=== PATIENT | female | born 1990 | race Caucasian/White ===

== ENCOUNTER 2017-10-16 05:19 | Emergency (ER) | payer OTHER ==
[~2017-10-16] VITALS: Ht 162.6 cm; Wt 56.7 kg
[~2017-10-16 05:19] MED LIST: ADDERALL 5 MG TA5 MG PO; AMOXICILLIN250 MG PO; AMOXICILLIN500 MG PO; ANASPAZ0.125 MG PO; ATIVAN0.5 MG PO; BUPROPION XL150 MG PO; COENZYME Q1010 MG PO; COUMADIN5 MG PO; CYCLOBENZAPRINE5 MG PO; DILAUDID4 MG PO; FLUDROCORTISON0.1 MG PO; HYDROCODON-ACE1 EA10 PO; IBUPROFEN600 MG PO; IRON325 M1 PO; LEXAPRO20 MG PO; LORAZEPAM0.5 MG PO; LORAZEPAM1 MG PO; LOVENOX40 MG; MAGNESIUM500 MG PO; METRONIDAZOLE500 MG PO; MILK OF MA400 MG/5 M PO; NORCO 5-325 TA1 EACH PO; PHENERGAN25 MG RC; PINDOLOL10 MG PO; PINDOLOL5 MG PO; POTASSIUM CHLO10 MEQ PO; PRENATAL CAPSU1 EACH PO; PRENATAL MULTI1 EACH PO; PROPRANOLOL HCL20 MG PO; PROTONIX40 MG PO; SODIUM CHLORIDE1 GM PO; STOOL SOFTENER240 MG PO; TUMS200 MG PO; VICODIN 5-5001 EACH PO; VITAMIN D10000 UNIT PO; WELLBUTRIN XL150 MG PO; ZOFRAN ODT8 MG PO
[2017-10-16] MEDS ORDERED: AMPHETAMINE SAL10 MG PO (05:31)
[2017-10-16] MEDS ORDERED: ZOFRAN ODT4 MG PO (06:52)
== END 2017-10-16 07:48 | disposition home or self-care (01) ==
LOC: ED 05:19
DX: K52.9 Noninfective gastroenteritis and colitis, unspecified (principal); Q79.6 Ehlers-Danlos syndromes; Z95.828 Presence of other vascular implants and grafts; Z88.8 Allergy status to other drugs, medicaments and biological substances; Z88.1 Allergy status to other antibiotic agents; Z88.0 Allergy status to penicillin; Z91.048 Other nonmedicinal substance allergy status
CPT/HCPCS: 80053; 81001; 83690; 84703; 85025; 96361; 96374; 96375; 96376; 99283; J1170; J2405; J2550; J7030

== ENCOUNTER 2018-03-06 08:55 | Day surgery (SDC) | payer OTHER ==
[~2018-03-06] VITALS: Ht 162.6 cm; Wt 54.4 kg
[~2018-03-06 08:55] MED LIST changes: +AMPHETAMINE SAL10 MG PO; +CYCLOBENZAPRINE10 MG PO; +K-TAB ER20 MEQ PO; +ZOFRAN ODT4 MG PO
[2018-03-06] MEDS ORDERED: FIORINAL-COD 31 EACH PO (09:09)
--- NOTE | 2018-03-06 12:07 | NUR ---
03/06/18 Chaz7 Pamela Garcia 1147 PT ARRIVED TO PCAU ON 6L VIA MASK. PT MAINTAINING OWN AIRWAY AND REACTIVE TO STIMULI. 1152 PT WOKE UP TO STIMULI WITH DIGITAL MARKETING STRATEGIST AT BEDSIDE, PT FOLLOWING COMMANDS ABOUT SUCTION, SMALL AMOUNT OF RED SPUTUM SUCTIONED. O2 MASK REMOVED, O2 SAT 100%. PT REPORTS HER "HEAD HURTING SOME" BUT TOLERABLE.
--- NOTE | 2018-03-06 12:47 | NUR ---
1225: PATIENT BACK IN DAY SURGERY ROOM FROM PACU. C/O PAIN 5/10. NASAL PACKING IN PLACE. SMALL AMOUNT OF RED DRAINAGE FROM NOSE. VS CHECKED. IV SITE WNL. SCDs ON. AT BEDSIDE. CALL LIGHT WITHIN REACH. ICE CREAM ORDERED FOR PATIENT. GIVEN ICE WATER. 1238: CALL PLACED TO DR. AVALOS FOR PAIN MEDS. ORDERS RECEIVED.
--- NOTE | 2018-03-06 13:05 | NUR ---
PT UP TO BR W/RN AND STANDBY. PT AMBULATES WELL AND REPORTS "A LITTLE DIZZINESS". PT REPORTS SUCCESSFUL VOID. ICE CREAM ARRIVES AND PT IS SITTING UP IN BED EATING. PT PLACES GLASSES AND HER IS AT HER BS.
--- NOTE | 2018-03-06 13:29 | NUR ---
PT RINGS CALL LIGHT TO SAY SHE IS "NOT FEELING ANY BETTER". PT ENCOURAGED TO ALLOW TIME FOR PO PRN TIME TO WORK AND SHE AGREES. PT EXPRESSES CONCERN WITH HAVING NO PAIN MEDICINE AT HOME. BLUE SHEET PRESCRIPTION SENT WITH SPOUSE OVER TO DR. AVALOS'S OFFICE FOR HIM TO REQUEST PAIN MEDICINE FOR AT HOME. WILL CONTINUE TO MONITOR PATIENT'S PAIN.
[2018-03-06] MEDS ORDERED: ULTRAM50 MG PO (14:22)
[2018-03-06] MEDS ORDERED: DILAUDID2 MG PO (14:22)
[2018-03-06] MEDS ORDERED: KEFLEX500 MG PO (14:23)
--- NOTE | 2018-03-06 14:58 | NUR ---
1400: PATIENT GIVEN SECOND DOSE OF DILAUDID FOR PAIN. PRESCRIPTION GIVEN TO TO GO DROP OFF. 1440: PATIENT STATES PAIN IMPROVED. BUT PATIENT C/O NAUSEA INTERMITTENTLY. PATIENT STATES SHE WANTS TO GO HOME SO SHE CAN GET IN HER OWN BED. DISCHARGE INSTRUCTIONS GIVEN TO PATIENT AND . IV DC'D WNL. TIP INTACT. DRESSING APPLIED. PATIENT DRESSED INDEPENDENTLY. PATIENT DISCHARGED TO HOME WITH VIA WHEELCHAIR.
--- NOTE | 2018-05-01 14:26 | OR ---
[facility] [address] [place], [place] [address] Signed DATE OF OPERATION: 03/06/2018 SURGEON: Sean Blackburn MD PREOPERATIVE DIAGNOSES: Nasal obstruction due to septal deformity and inferior turbinate hypertrophy. 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 PROCEDURE: Septoplasty, cautery of inferior turbinates. ANESTHESIA: General LMA; SUBSTATION OPERATOR CHIEF, Gene. PREOPERATIVE HISTORY: Stephanie is a 28-year-old lady with nasal obstruction, congestion due to septal deformity, inferior turbinate hypertrophy, unresponsive to appropriate medications. She was taken to the operating for the above-mentioned procedures. OPERATIVE PROCEDURE AND FINDINGS: After informed consent, the patient was taken to the operating room and placed in supine position where general LMA anesthesia was induced. The patient and procedure were verified. The patient received preoperative intranasal oxymetazoline and intravenous Ancef. Headlight speculum exam of the nasal cavity showed nicely decongested inferior turbinates. The septum was deviated to the right with a large shelf and a spur. A 1% lidocaine was injected in the septal mucosa and all deviated septal bone and cartilage were removed with the Crow. The septum was medialized and airway improved in this manner. The inferior turbinates were then cauterized starting on the left side, long handle needle point cautery. Multiple passes starting anteriorly extending all the way back posteriorly on the medial and inferior surface of the inferior turbinates. Excellent decongestion was obtained. The same procedure on the right inferior turbinate. Bleeding was minimal, stopped afterwards. Merocel pack one piece each side trimmed, coated with Neosporin, tied anteriorly over a pad, was placed one piece each nostril. Pharynx was suctioned clear blood secretions. The patient was then awakened, extubated, transported to recovery room in good condition. No complications. Blood loss minimal. No Electronically Signed By: SEAN BLACKBURN MD 05/01/18 1426 PATIENT NAME: STEPHANIE IRVING OPERATIVE REPORT DATE OF : 86 REPORT #: [id number] PHYSICIAN: SEAN BLACKBURN MD PCP: SVITLANA AN PAC REPORT IS CONFIDENTIAL AND NOT TO BE RELEASED WITHOUT AUTHORIZATION [facility] [address] [place] [id number] Signed specimens. No drains. Packing one piece of Merocel each nostril. Sean Blackburn MD GC/MODL /[id number] Copies: ~ Electronically Signed By: SEAN BLACKBURN MD 05/01/18 1426 PATIENT NAME: MALETICH,STEPHANIE PENNYANN OPERATIVE REPORT DATE OF : 86 REPORT #: [id number] PHYSICIAN: SEAN BLACKBURN MD PCP: SVITLANA AN PAC REPORT IS CONFIDENTIAL AND NOT TO BE RELEASED WITHOUT AUTHORIZATION
== END 2018-03-06 14:40 | disposition home or self-care (01) ==
LOC: DS 08:55
PROVIDERS: Otolaryngology
PROC: 09SM0ZZ Reposition Nasal Septum, Open Approach (ICD-10-PCS; principal; 2018-03-06 11:45)
PROC: 095L0ZZ Destruction of Nasal Turbinate, Open Approach (ICD-10-PCS; 2018-03-06 11:45)
DX: J34.2 Deviated nasal septum (principal); J34.3 Hypertrophy of nasal turbinates; J34.89 Other specified disorders of nose and nasal sinuses; M54.2 Cervicalgia; M54.9 Dorsalgia, unspecified; K21.9 Gastro-esophageal reflux disease without esophagitis; Z88.0 Allergy status to penicillin; Z88.1 Allergy status to other antibiotic agents; Z88.8 Allergy status to other drugs, medicaments and biological substances
CPT/HCPCS: 00160; J0690; J2405; J2704; J2765; J3010; J7120

== ENCOUNTER 2019-03-19 17:42 | Emergency (ER) | payer OTHER ==
[~2019-03-19] VITALS: Ht 162.6 cm; Wt 54.4 kg
[~2019-03-19 17:42] MED LIST changes: +AMITRIPTYLINE H25 MG PO; +DILAUDID2 MG PO; +FIORINAL-COD 31 EACH PO; +KEFLEX500 MG PO; +ULTRAM50 MG PO
--- OUTSIDE RECORDS SUMMARY | 2019-03-19 17:44 | XMS ---
PreManage Notification: AQUILES IRVING Security Services Executive Events No recent Security Events currently on file CRITERIA MET - Group Notification - [facility] CARE PROVIDERS MALIA BUTLER [facility] Current PHONE: Unknown SVITLANA NICHOLS Primary Care Current PHONE: [phone] Asad Marquis MD PHONE: Unknown Fazal Marley Current Orthopedic Surgery \T\ Fracture Clinic PHONE: Unknown Guidelines Source: [facility] Guidelines Date: 12/12/2016 Pain Management: PT DISCHARGED 12/11/16 S/Salena GAVIN FROM [facility]. PT DISCHARGED ON DILAUDID 4MG TABS #60 WITH NO REFILLS. E.D. VISIT COUNT (12 MO.) 1 [facility] [address] [facility] TOTAL 3 NOTE: Visits indicate total known visits. ED/UCC VISIT TRACKING (12 MO.) 03/19/2019 17:42 [facility] [place] TYPE: Emergency COMPLAINT: - HEAD PAIN/NON INJURY 11/02/2018 19:55 Anthony [place] TYPE: Emergency COMPLAINT: - NAUSEA VOMITING DIAGNOSES: - Palpitations - Personal history of other venous thrombosis and embolism - Essential (primary) hypertension - Dehydration - Other specified cardiac arrhythmias - Nausea with vomiting, unspecified 11/02/2018 10:39 [facility] [place] TYPE: Emergency DIAGNOSES: - chest pain - Orthostatic hypotension - Tachycardia, unspecified INPATIENT VISIT TRACKING (12 MO.) No inpatient visits to display in this time frame [email or web address]
[2019-03-19] MEDS ORDERED: POTASSIUM CHLO10 MEQ PO (18:51)
[2019-03-19] MEDS ORDERED: VENLAFAXINE H37.5 M1 PO (18:52)
== END 2019-03-19 20:12 | disposition home or self-care (01) ==
LOC: ED 17:42
DX: G43.919 Migraine, unspecified, intractable, without status migrainosus (principal); F41.9 Anxiety disorder, unspecified; Z88.1 Allergy status to other antibiotic agents; Z88.0 Allergy status to penicillin; Z88.8 Allergy status to other drugs, medicaments and biological substances; Z91.09 Other allergy status, other than to drugs and biological substances; Z79.899 Other long term (current) drug therapy
CPT/HCPCS: 96361; 96374; 96375; 99283-25; J1200; J1885; J2765; J7030

== ENCOUNTER 2019-04-29 01:51 | Emergency (ER) | payer OTHER ==
[~2019-04-29] VITALS: Ht 162.6 cm; Wt 59.4 kg
[~2019-04-29 01:51] MED LIST changes: +VENLAFAXINE H37.5 M1 PO
--- OUTSIDE RECORDS SUMMARY | 2019-04-29 01:54 | XMS ---
PreManage Notification: AQUILES IRVING Security Pain Management Nurse Events No recent Security Events currently on file CRITERIA MET - Group Notification - [facility] CARE PROVIDERS SVITLANA AN Physician Customer Relations Representative 03/20/2019-Current PHONE: Unknown MALIA BUTLER Family Medicine [facility] PHONE: [phone] SVITLANA NICHOLS Primary Care Current PHONE: [phone] Asad Marquis Treatment Current PHONE: Unknown [facility] Current Orthopedic Surgery \T\ Fracture Clinic PHONE: Unknown Guidelines Source: [facility] Guidelines Date: 12/12/2016 Pain Management: PT DISCHARGED 12/11/16 S/Salena GAVIN FROM [facility]. PT DISCHARGED ON DILAUDID 4MG TABS #60 WITH NO REFILLS. E.D. VISIT COUNT (12 MO.) 1 [facility] 1 [facility] ED 2 [facility]. TOTAL 4 NOTE: Visits indicate total known visits. ED/UCC VISIT TRACKING (12 MO.) 04/29/2019 01:52 [facility] [place] TYPE: Emergency COMPLAINT: - ABDOMINAL PAIN 03/19/2019 17:42 [facility] [place] TYPE: Emergency COMPLAINT: - HEAD PAIN/NON INJURY DIAGNOSES: - Migraine, unspecified, intractable, without status migrainosus - Allergy status to other drugs, medicaments and biological substances status - Anxiety disorder, unspecified - Other allergy status, other than to drugs and biological substances - Allergy status to penicillin - Other cottage cheese maker (current) drug therapy - Headache - Allergy status to other antibiotic agents status 11/02/2018 19:55 [facility] [place] TYPE: Emergency COMPLAINT: - NAUSEA VOMITING DIAGNOSES: - Palpitations - Personal history of other venous thrombosis and embolism - Essential (primary) hypertension - Dehydration - Other specified cardiac arrhythmias - Nausea with vomiting, unspecified 11/02/2018 10:39 [facility] TYPE: Emergency DIAGNOSES: - chest pain - Orthostatic hypotension - Tachycardia, unspecified INPATIENT VISIT TRACKING (12 MO.) No inpatient visits to display in this time frame [email or web address]
[2019-04-29] MEDS ORDERED: K-TAB ER20 MEQ PO (02:07)
[2019-04-29] MEDS ORDERED: RIZATRIPTAN5 MG PO (02:09)
[2019-04-29] MEDS ORDERED: EFFEXOR XR150 MG PO (02:09)
[2019-04-29] MEDS ORDERED: AMERGE2.5 MG PO (02:10)
[2019-04-29] MEDS ORDERED: CELEBREX50 MG PO (02:10)
[2019-04-29] MEDS ORDERED: HYDROXYZINE HCL50 MG PO (02:11)
[2019-04-29] MEDS ORDERED: MIDODRINE HCL5 MG PO (02:11)
[2019-04-29] MEDS ORDERED: ZOFRAN4 MG PO (05:30)
[2019-04-29] MEDS ORDERED: TRAMADOL HCL50 MG PO (05:30)
== END 2019-04-29 05:53 | disposition home or self-care (01) ==
LOC: ED 01:51
DX: K52.9 Noninfective gastroenteritis and colitis, unspecified (principal); Z87.891 Personal history of nicotine dependence; Z90.49 Acquired absence of other specified parts of digestive tract; Z88.1 Allergy status to other antibiotic agents; Z88.6 Allergy status to analgesic agent; Z88.8 Allergy status to other drugs, medicaments and biological substances; Z91.048 Other nonmedicinal substance allergy status; Z79.899 Other long term (current) drug therapy
CPT/HCPCS: 74177; 80053; 81001; 83690; 83735; 84703; 85025; 99283-25; J1170; J2405; J7030; Q9967

== ENCOUNTER 2019-04-30 07:26 | Day surgery (SDC) | payer OTHER ==
[~2019-04-30] VITALS: Ht 162.6 cm; Wt 59.0 kg
[~2019-04-30 07:26] MED LIST changes: +AMERGE2.5 MG PO; +CELEBREX50 MG PO; +EFFEXOR XR150 MG PO; +HYDROXYZINE HCL50 MG PO; +MIDODRINE HCL5 MG PO; +RIZATRIPTAN5 MG PO; +TRAMADOL HCL50 MG PO; +ZOFRAN4 MG PO
--- NOTE | 2019-04-30 08:59 | NUR ---
04/30/19 0859 Sarah Hernandez 7315-PATIENT ARRIVED TO PACU ON 2L NC RR EVEN. PATIENT AROUSES TO VERBAL STIMULI REPORTS "SLEEPY" LAYING LEFT LATERAL. ENCOURAGED TO PASS GAS. IVF INFUSING. C02 36. PATIENT DOZES BACK TO SLEEP.
--- NOTE | 2019-04-30 16:54 | OR ---
[facility] [address], [place] [address] Signed DATE OF OPERATION: 04/30/2019 SURGEON: Alonzo Wall MD PREOPERATIVE DIAGNOSES: 1. Epigastric and generalized abdominal pain. 2. Diarrhea. 3. Bloating and nausea. 4. Pancolitis. POSTOPERATIVE DIAGNOSES: 1. Mild diffuse gastritis. 2. Small hiatal hernia. 3. Pancolitis. PROCEDURES: 1. Esophagogastroduodenoscopy with CLOtest and biopsies of the duodenum and antrum. 2. Colonoscopy with cold biopsies throughout the entire colon and rectum. ESTIMATED BLOOD LOSS: Minimal. INDICATIONS: Stephanie is a 29-year-old female who had been in the emergency room with significant epigastric and generalized abdominal pain. She has nausea, bloating, and diarrhea. She thinks she has been dealing with this for at least 10 years into her teenage years. It happens 3 or 4 times in a year. It is associated with 10 to 12 episodes of diarrhea a day. It often bothers her at night. She did not mention if there is any blood in the stool. In the emergency room, her white count was normal and beta-hCG was negative. She has had her gallbladder out previously. Her sedimentation rate and CRP level are pending. A CT scan of abdomen and pelvis showed pancolitis. I saw her the very next morning in my office the following day. Now, we have her here for her endoscopy. In the office, I gave her pamphlets on both upper and lower endoscopy. We looked at those together along with the risks including, but not limited to gas, bloating, crampy abdominal pain, bleeding, perforation requiring surgery, and missed diagnosis. She also understands the need for IV conscious sedation. She had expressed her understanding and wished to proceed. DESCRIPTION OF PROCEDURE: Stephanie was taken into our endoscopy suite and placed in the supine semi-recumbent Electronically Signed By: ALONZO WALL MD 04/30/19 1654 PATIENT NAME: STEPHANIE IRVING OPERATIVE REPORT DATE OF : 86 REPORT #: [id number] PHYSICIAN: ALONZO WALL MD PCP: SVITLANA AN PAC REPORT IS CONFIDENTIAL AND NOT TO BE RELEASED WITHOUT AUTHORIZATION [facility] [address], [place] [address] Signed position. She was given a total of 10 mg of Versed and 200 mcg of fentanyl to cover both upper and lower endoscopy. Her posterior oropharynx was anesthetized with Hurricaine spray. A bite block was utilized for the case. The adult gastroscope was introduced and advanced out into the third portion of the duodenum under direct visualization of the camera without difficulty. We took two biopsies of the duodenum for pathologic review due to the history of diarrhea. Otherwise, the duodenum and pyloric channel were unremarkable. Overall, the stomach showed very mild erythematous changes. We went ahead and took a biopsy of the antrum for CLOtest as well as pathologic review. Upon retroflexion of the scope, she has just a small hiatal hernia. There were no gastric or esophageal varices. No ulcerations. The scope was withdrawn up to the area of the GE junction, which was compliant without stricture. She does have mild disruption to the Z-line. No Kaur's mucosa. No distal esophagitis. The middle and upper esophagus were unremarkable. After this, the gas had been suctioned out and the gastroscope removed. Stephanie tolerated the upper endoscopy quite well. Stephanie was then rotated into the left lateral decubitus position. She was maintained on IV sedation with the Versed and fentanyl. A digital rectal exam was performed and this was unremarkable. The adult colonoscope was introduced and advanced all the way around into the cecum under direct visualization of the camera. She did have inflammatory changes from the anus all the way back to the cecum. Her inflammatory changes were contiguous. She had a little bit of narrowing in the sigmoid colon from the edema. Her prep was good. We made several attempts to turn and go into the ileum without success. It was edematous and would not allow the scope to enter. We went and took a biopsy at the base of the appendix as well as the cecum. The scope was then slowly withdrawn. We took multiple random cold biopsies in the right colon, hepatic flexure, transverse colon, left colon, sigmoid colon, and rectum. The scope had been retroflexed in the rectum and, again, the inflammatory changes go down to the top of the anus. After this, the gas was suctioned out and colonoscope removed. Stephanie tolerated the procedure quite well. RECOMMENDATIONS: We will have Stephanie back in the office in a week or so for followup. We will withhold any prednisone or anti-inflammatory drugs at this time. Alonzo Wall MD ALB/MODL /[id number] Electronically Signed By: ALONZO WALL MD 04/30/19 1654 PATIENT NAME: STEPHANIE IRVING [facility] OPERATIVE REPORT DATE OF : 86 REPORT #: [id number] PHYSICIAN: ALONZO WALL MD PCP: SVITLANA AN PAC REPORT IS CONFIDENTIAL AND NOT TO BE RELEASED WITHOUT AUTHORIZATION [facility] [address] [place] [address] Signed cc: Dnany Alonzo Wall MD Copies: ALONZO WALL MD ~ Electronically Signed By: ALONZO WALL MD 04/30/19 1654 PATIENT NAME: STEPHANIE IRVING OPERATIVE REPORT DATE OF : 86 REPORT #: [id number] PHYSICIAN: ALONZO WALL MD PCP: SVITLANA AN PAC REPORT IS CONFIDENTIAL AND NOT TO BE RELEASED WITHOUT AUTHORIZATION
== END 2019-04-30 10:10 | disposition home or self-care (01) ==
LOC: DS 07:26 → OPS 07:26 → DS 08:15 → OPS 08:15
PROVIDERS: Colon & Rectal Surgery
PROC: 0DBH8ZX Excision of Cecum, Via Natural or Artificial Opening Endoscopic, Diagnostic (ICD-10-PCS; 2019-04-30)
PROC: 0DBK8ZX Excision of Ascending Colon, Via Natural or Artificial Opening Endoscopic, Diagnostic (ICD-10-PCS; 2019-04-30)
PROC: 0DBL8ZX Excision of Transverse Colon, Via Natural or Artificial Opening Endoscopic, Diagnostic (ICD-10-PCS; 2019-04-30)
PROC: 0DBN8ZX Excision of Sigmoid Colon, Via Natural or Artificial Opening Endoscopic, Diagnostic (ICD-10-PCS; 2019-04-30)
PROC: 0DBP8ZX Excision of Rectum, Via Natural or Artificial Opening Endoscopic, Diagnostic (ICD-10-PCS; 2019-04-30)
PROC: 0DBJ8ZX Excision of Appendix, Via Natural or Artificial Opening Endoscopic, Diagnostic (ICD-10-PCS; 2019-04-30)
PROC: 0DB98ZX Excision of Duodenum, Via Natural or Artificial Opening Endoscopic, Diagnostic (ICD-10-PCS; principal; 2019-04-30 08:15)
PROC: 0DB78ZX Excision of Stomach, Pylorus, Via Natural or Artificial Opening Endoscopic, Diagnostic (ICD-10-PCS; 2019-04-30 08:15)
DX: K52.9 Noninfective gastroenteritis and colitis, unspecified (principal); K29.50 Unspecified chronic gastritis without bleeding; K63.3 Ulcer of intestine; K44.9 Diaphragmatic hernia without obstruction or gangrene; Z88.1 Allergy status to other antibiotic agents; Z88.6 Allergy status to analgesic agent; Z88.5 Allergy status to narcotic agent; Z88.8 Allergy status to other drugs, medicaments and biological substances; Z88.0 Allergy status to penicillin; Z79.899 Other long term (current) drug therapy
CPT/HCPCS: 86677; 99153; G0500; J2250; J2405; J3010; J7120

== ENCOUNTER 2022-01-16 23:29 | Emergency (ER) | payer OTHER ==
[~2022-01-16] VITALS: Ht 162.6 cm; Wt 61.0 kg
[2022-01-16] MEDS ORDERED: BUSPIRONE HCL7.5 MG PO (23:47)
[2022-01-16] MEDS ORDERED: TOPAMAX100 MG PO (23:47)
[2022-01-16] MEDS ORDERED: VALTREX500 MG PO (23:48)
[2022-01-16] MEDS ORDERED: TRAZODONE HCL50 MG PO (23:48)
[2022-01-16] MEDS ORDERED: ADDERALL 10 MG10 MG PO (23:50)
== END 2022-01-17 01:31 | disposition home or self-care (01) ==
LOC: ED 23:29
DX: J10.1 Influenza due to other identified influenza virus with other respiratory manifestations (principal); Z88.8 Allergy status to other drugs, medicaments and biological substances; Z88.1 Allergy status to other antibiotic agents; Z91.048 Other nonmedicinal substance allergy status; Z88.5 Allergy status to narcotic agent; Z88.6 Allergy status to analgesic agent; Z88.0 Allergy status to penicillin; Z79.899 Other long term (current) drug therapy; Z20.822 Contact with and (suspected) exposure to COVID-19
CPT/HCPCS: 36415; 71045; 80048; 83605; 85025; 87040; 87880; 99285-25; A9270; J7030; U0003

== ENCOUNTER 2025-05-20 11:23 | Emergency (ER) | payer SELFPAY ==
[~2025-05-20] VITALS: Ht 162.6 cm; Wt 62.6 kg
[~2025-05-20 11:23] MED LIST changes: +ADDERALL 10 MG10 MG PO; +BUSPIRONE HCL7.5 MG PO; +TOPAMAX100 MG PO; +TRAZODONE HCL50 MG PO; +VALTREX500 MG PO
[2025-05-20 11:39] LABS: BASOPHILS 1.4 % (0.1-1.2); EOSINOPHILS 3.5 % (0.7-5.8); LYMPHOCYTES 34.4 % (19.3-51.7); MCH 30.2 PG (25.6-32.2); MCHC 34.1 g/dL (32.2-35.5); MCV 88.5 fL (79.4-94.8); MONOCYTES 7.9 % (4.7-12.5); NEUTROPHILS 52.1 % (34.0-71.1); RBC 4.54 M/uL (3.93-5.22)
[2025-05-20] MEDS ORDERED: KETOROLAC TROMETHAMINE 15 MG/ML VIAL IV ONE (11:45)
[2025-05-20 11:53] LABS: ALT (SGPT) 48.0 U/L (14-59); AST (SGOT) 20.0 U/L (15-37); GLOMERULAR FILTRATION RATE,EST 92.0 mL/min (>60); PROTEIN, TOTAL 8.0 g/dL (6.4-8.2); UREA NITROGEN 10.0 mg/dL (7-18)
[2025-05-20 11:55] LABS: BLOOD/HGB, URINE NEGATIVE (Negative); KETONE, URINE NEGATIVE (Negative); LEUK ESTERASE, URINE NEGATIVE (negative); NITRITE, URINE NEGATIVE (negative)
[2025-05-20] MEDS ORDERED: MORPHINE SULFATE 4 MG/ML VIAL IV ONE (12:45)
[2025-05-20] MEDS ORDERED: PREDNISONE20 MG PO (13:45)
[2025-05-20] MEDS ORDERED: predniSONE 20 MG TAB PO ONE (13:45)
[2025-05-20] MEDS ORDERED: TRAMADOL HCL50 MG PO (13:45)
[2025-05-20] MEDS ORDERED: ONDANSETRON ODT4 MG PO (13:45)
[2025-05-20 13:50] VITALS: BP 118/79
== END 2025-05-20 13:55 | disposition home or self-care (01) ==
LOC: ED 11:23
PROVIDERS: Emergency Medicine
DX: M54.50 Low back pain, unspecified (principal); Z79.899 Other long term (current) drug therapy; Z88.5 Allergy status to narcotic agent; Z88.1 Allergy status to other antibiotic agents; Z91.048 Other nonmedicinal substance allergy status; Z88.8 Allergy status to other drugs, medicaments and biological substances
CPT/HCPCS: 36415; 74176; 80053; 81003; 84703; 85025; 96374; 96375; 99284-25; J1885; J2270; J2405; J7512

== ENCOUNTER 2025-09-16 15:30 | Emergency (ER) | payer OTHER ==
[~2025-09-16] VITALS: Ht 162.6 cm; Wt 67.4 kg
[~2025-09-16 15:30] MED LIST changes: +ONDANSETRON ODT4 MG PO; +PREDNISONE20 MG PO
[2025-09-16 16:11] LABS: BASOPHILS 0.7 % (0.1-1.2); EOSINOPHILS 1.4 % (0.7-5.8); LYMPHOCYTES 21.4 % (19.3-51.7); MCH 30.2 PG (25.6-32.2); MCHC 34.0 g/dL (32.2-35.5); MCV 88.8 fL (79.4-94.8); MONOCYTES 7.5 % (4.7-12.5); NEUTROPHILS 68.6 % (34.0-71.1); RBC 3.84 M/uL (3.93-5.22)
[2025-09-16 16:22] LABS: BLOOD/HGB, URINE NEGATIVE (Negative); KETONE, URINE NEGATIVE (Negative); LEUK ESTERASE, URINE NEGATIVE (negative); NITRITE, URINE NEGATIVE (negative)
[2025-09-16 16:49] LABS: ALT (SGPT) 28.0 U/L (14-59); AST (SGOT) 12.0 U/L (15-37); GLOMERULAR FILTRATION RATE,EST 116.0 mL/min (>60); PROTEIN, TOTAL 6.8 g/dL (6.4-8.2); UREA NITROGEN 14.0 mg/dL (7-18)
[2025-09-16 16:54] LABS: ABO A; RH NEGATIVE
[2025-09-16 18:23] VITALS: BP 116/74
== END 2025-09-16 18:20 | disposition home or self-care (01) ==
LOC: ED 15:30
PROVIDERS: Emergency Medicine
DX: O20.9 Hemorrhage in early pregnancy, unspecified (principal); Z3A.01 Less than 8 weeks gestation of pregnancy; Z88.8 Allergy status to other drugs, medicaments and biological substances; Z79.899 Other long term (current) drug therapy; Z79.2 Long term (current) use of antibiotics
CPT/HCPCS: 36415; 76801; 76817; 80053; 81003; 84702; 85025; 86900; 86901; 99284-25